=== PATIENT | male | born 1980 | race Caucasian/White ===

== ENCOUNTER → 2022-06-27 | Outpatient (CLI) | payer OTHER ==
[~2022-06-27] MED LIST: CYCL10 PO; HYDACE5 PO; HYDACE5325 PO; Loratadine10 MG PO; NAPR550 PO; Norco 5-325 Ta1 EACH PO; PRED20 PO; Percocet 5-3251 EACH PO; RXHYD5325 PO; TRAM50 PO; VICODIN 5-3001 EACH PO; Valium5 MG PO
== END | disposition home or self-care (01) ==
LOC: LAB SHORT 13:05
DX: R31.9 Hematuria, unspecified (principal)
CPT/HCPCS: 87086

== ENCOUNTER 2022-10-26 06:10 | Day surgery (SDC) | payer OTHER ==
[2022-10-26] VITALS (11 sets, daily range): BP systolic 103–137; BP diastolic 67–94
[~2022-10-26] VITALS: Ht 182.9 cm; Wt 98.7 kg
[~2022-10-26 06:10] MED LIST changes: +OMEP20ER PO; +PSEU120ER PO
[2022-10-26] MEDS ORDERED: MAGNESIUM OXID500 MG PO (06:32)
== END 2022-10-26 22:56 | disposition home or self-care (01) ==
LOC: ORSCMMR 06:10 → ORD 07:30 → ORSCMMR 22:56
PROVIDERS: Surgery
PROC: 3E0M05Z Introduction of Adhesion Barrier into Peritoneal Cavity, Open Approach (ICD-10-PCS; principal; 2022-10-26 07:30)
PROC: 0YU50JZ Supplement Right Inguinal Region with Synthetic Substitute, Open Approach (ICD-10-PCS; principal; 2022-10-26 07:30)
DX: K40.90 Unilateral inguinal hernia, without obstruction or gangrene, not specified as recurrent (principal); K21.9 Gastro-esophageal reflux disease without esophagitis; G47.33 Obstructive sleep apnea (adult) (pediatric); Z87.891 Personal history of nicotine dependence; Z79.899 Other long term (current) drug therapy
CPT/HCPCS: A9270; C1781; J0690; J1100; J1885; J2250; J2405; J2704; J2795; J3010; J7120